=== PATIENT | male | born 1960 | race Caucasian/White ===

== ENCOUNTER 2024-01-25 12:09 | Day surgery (SDC) | payer BC ==
[2024-01-25] MEDS ORDERED: Lactated Ringers 1,000 ML IV ONE (12:12)
[2024-01-25 12:20] VITALS: RESP 18; TEMP 97.8; O2SAT 99
[2024-01-25] MEDS: Lactated Ringers 1,000 ML IV SCH (12:29)
[2024-01-25] MEDS ORDERED: Versed 2 MG/2 ML Injection ONE (12:44)
[2024-01-25] MEDS ORDERED: Xylocaine-Mpf 2% 5 Ml Vial ONE (12:44)
[2024-01-25] MEDS ORDERED: DIPRIVAN 200 MG/20 ML IV ONE ×2 (12:44→13:02)
[2024-01-25 14:14] VITALS: BP 121/79; PULSE 77
--- NOTE | 2024-01-26 10:50 | OP ---
SURGERY DATE/TIME: 7024-5056 PREOPERATIVE DIAGNOSES: 1) Screening/surveillance. 2) History of multiple polyps. POSTOPERATIVE DIAGNOSES: 1) Screening/surveillance. 2) History of multiple polyps. 3) Multiple polyps. 4) Minimal diverticulosis. 5) Anal tag. PROCEDURE: Colonoscopy. SURGEON: Kaity Sanchez MD ANESTHESIA: MAC. ESTIMATED BLOOD LOSS: Minimal. COMPLICATIONS: None. SPECIMENS: Colon polyps at: 1) Appendiceal orifice. 2) Proximal ascending colon. 3) Rectosigmoid. INDICATIONS: This is a gentleman with a history of multiple polyps in the past who presents for colonoscopy for screening purposes. He has no symptoms. The risks, benefits, and alternatives have been discussed with him in detail. All his questions have been answered to his satisfaction. His H and P and consent have all been confirmed with him, and he would like to proceed. DESCRIPTION OF PROCEDURE AND FINDINGS: He was brought to the endoscopy suite, laid in the left lateral decubitus position. Complete time-out performed. First, a rectal inspection and rectal exam were done. He has a very minor skin tag. This may be residual from when he had his hemorrhoid surgery. This is very tiny and is very benign. This was confirmed once we inserted the colonoscopy scope. The scope was then inserted and gently advanced to the level of the cecum. The prep was satisfactory. The appendiceal orifice was normal except for a small polyp at the periphery of the appendiceal orifice. This was taken in entirety with the cold forceps and sent to Pathology. Site was hemostatic, and polyp was fully removed. There were no other findings in the cecum. The ileocecal valve was normal. The scope was then carefully withdrawn, taking a circumferential look at all surfaces. He did have some liquid stool that we irrigated and suctioned. I found 2 additional polyps. Both were very small. They were located in the proximal ascending colon and the rectosigmoid region, and both were taken in entirety with cold forceps and sent to Pathology. There was an additional rectosigmoid polyp that was very small, again taken with cold forceps in entirety and sent to Pathology. Total number of polyps was 4, all very small. He did have a few small diverticula in the left colon, and there were no other findings in the colon or rectum. The scope was then able to be withdrawn. All sites hemostatic. No other concerning findings. Patient will follow up with me as an outpatient. If many of the polyps are tubular adenomas, we will recommend a 3-year interval. If not, I will discuss with him spacing out the interval longer to 5 or potentially 7 years, and we will talk about this when we get our final pathology report.
== END 2024-01-25 14:18 | disposition home or self-care (01) ==
LOC: SDC 12:09
PROVIDERS: ATTEND Surgery
DX: Z12.11 Encounter for screening for malignant neoplasm of colon (principal); Z09 Encounter for follow-up examination after completed treatment for conditions other than malignant neoplasm; D12.2 Benign neoplasm of ascending colon; K62.1 Rectal polyp; Z86.010 Personal history of colon polyps; K57.30 Diverticulosis of large intestine without perforation or abscess without bleeding; K64.4 Residual hemorrhoidal skin tags; E11.9 Type 2 diabetes mellitus without complications
CPT/HCPCS: 82947; J2250; J2704